=== PATIENT | male | born 1995 | race Hispanic/Latino ===

== ENCOUNTER 2022-09-23 14:00 | Emergency (ER) | payer BC, SELFPAY ==
[2022-09-23 14:10] VITALS: BP 138/61; PULSE 79; RESP 16; TEMP 37.3; O2SAT 98
--- NOTE | 2022-09-23 14:26 | ED.URI ---
HPI - URI/Sore Throat General Chief Complaint: Upper Respiratory Infection Stated Complaint: sore throat, headache, congestion Time Seen by Provider: 09/23/22 14:26 Source: patient Mode of arrival: ambulatory Limitations: no limitations History of Present Illness HPI Narrative: 26-year-old male presents with complaint of mild nasal congestion, sore throat, headache, fatigue, chills for 2 days. Afebrile. Denies nausea vomiting diarrhea. No chest pain or shortness breath. Not taking any [id number] medications to treat his symptoms. States that his girlfriend is also sick. They had recent COVID exposure. Called off work and needs Note. All systems reviewed and negative except as noted above. Related Data Home Medications Medication Instructions Recorded Confirmed No Home Medications 09/23/22 09/23/22 Allergies Allergy/AdvReac Type Severity Reaction Status Date / Time No Known Allergies Allergy Verified 09/23/22 14:05 Review of Systems Review of Systems: CONSTITUTIONAL: Denies fever, or sweats. Reports chills and fatigue. EYES: Denies visual changes, redness, or discharge. ENT: Denies rhinorrhea . Reports congestion, sore throat. Denies otalgia. CARDIOVASCULAR: Denies chest pain, palpitations, or edema. RESPIRATORY: Denies cough or dyspnea. GASTROINTESTINAL: Denies abdominal pain, nausea, vomiting, or diarrhea. GENITOURINARY: Denies dysuria or hematuria. SKIN: Denies rash or itching. MUSCULOSKELETAL: Denies back pain, joint pain, or myalgia. NEUROLOGIC: Reports headache. Denies numbness, or weakness. PSYCHIATRIC: Denies anxiety or depression. All other systems reviewed are negative, except as documented in HPI. PMFSH Comments At time of signature, agree with nursing past medical, surgical, social and family history. There is no relevant family history pertinent to the presenting complaint. Exam Narrative: GENERAL: This is a well-nourished, well-developed patient, in no apparent distress. HEAD: normocephalic, atraumatic. EYES: PERRL. Sclera clear/white. Vision is grossly intact. EARS: External ears normal, auditory canals clear and without drainage, TMs normal without perforation. Hearing grossly intact. NOSE: External nose normal with no obvious nasal discharge, nares without redness, no rhinorrhea. THROAT: Mucous membranes moist, mild erythema, tonsils 1+ bilaterally. NECK: Neck supple, non-tender without lymphadenopathy, masses or thyromegaly. CARDIOVASCULAR: Regular rate and rhythm without murmurs, gallops, or rubs. RESPIRATORY: Clear to auscultation. Breath sounds equal bilaterally. No wheezes, rales, or rhonchi. SKIN: warm, Dry, intact with no suspicious lesions or rash, good texture and turgor. NEURO: awake, alert, and oriented to person, place and time. There were no obvious focal neurologic abnormalities. EXTREMITIES: No joint tenderness, effusion, or edema noted. Course Course Level of Care: Express Care Visit Vital Signs Vital signs: Vital Signs Temperature 37.3 C 09/23/22 14:10 Pulse Rate 79 09/23/22 14:10 Respiratory Rate 16 09/23/22 14:10 Blood Pressure 138/61 09/23/22 14:10 Pulse Oximetry 98 09/23/22 14:10 Oxygen Delivery Room Air 09/23/22 14:10 Temperature 37.3 C 09/23/22 14:10 Pulse Rate 79 09/23/22 14:10 Respiratory Rate 16 09/23/22 14:10 Blood Pressure 138/61 09/23/22 14:10 Pulse Oximetry 98 09/23/22 14:10 Oxygen Delivery Room Air 09/23/22 14:10 Reviewed MDM - URI/Sore Throat MDM Narrative Medical decision making narrative: Patient is aware of diagnosis, understands and agrees to treatment plan. Anticipatory guidance given. Patient agrees to follow-up as directed and is aware of reasons to seek care at the emergency department. Portions of this record may have been created with voice recognition software Differential Diagnosis Differential diagnosis: Likely upper respiratory infection, sinusitis, viral inf
== END 2022-09-23 14:53 | disposition home or self-care (01) ==
PROVIDERS: Emergency Provider Nurse Practitioner Family
DX: J06.9 Acute upper respiratory infection, unspecified (principal); Z20.822 Contact with and (suspected) exposure to COVID-19
CPT/HCPCS: 87426; 87804; 99213; C9803; G0463